=== PATIENT | male | born 1935 | race African-American/Black ===

== ENCOUNTER 2021-04-10 11:36 | Inpatient (IN) ==
[2021-04-10] MEDS ORDERED: MORPHINE 2 MG/1 ML SYRINGE IV STA (12:18)
[2021-04-10] MEDS ORDERED: ONDANSETRON 4 MG/2 ML VIAL IV ONE (12:18)
[2021-04-10 13:30] LABS: Alanine Aminotransferase 19 U/L (16-61); Albumin 3.1 G/DL (3.4-5.0); Alkaline Phosphatase 105 U/L (45-117); Aspartate Amino Transferase 69 U/L (0-37); Blood Urea Nitrogen 61 MG/DL (7-18); Carbon Dioxide 21 MMOL/L (21-32); Estimated Glom Filtration Rate 20 ML/MIN; Glucose 377 MG/DL (74-106); Osmolality,Calculated 299.2 MOS/KG (273-304); Potassium 4.5 MMOL/L (3.5-5.1); Sodium 134 MMOL/L (136-145); Total Protein 9.3 G/DL (6.4-8.2); Uric Acid 11.3 MG/DL (3.5-7.2)
[2021-04-10 13:39] LABS: Bacteria,Urine Occasional /HPF (Few); Bilirubin,Urine Negative (Negative); Blood, Urine Small mg/dL (Negative); Glucose,Urine (UA) 50 mg/dL (Negative); Hyaline Casts,Urine 45 /LPF (0-3); Ketones,Urine Negative (Negative); Mucus,Urine Occasional /LPF (Occasional); Nitrite,Urine Negative (Negative); Protein,Urine Negative; RBC,Urine 3 /HPF (0-4); Squamous Epithelial Cell,Urine Occasional /HPF (0-10); Urine Appearance Slightly Hazy (Clear); Urine Color Amber (Yellow); Urine Specific Gravity 1.018 (1.001-1.035)
[2021-04-10] MEDS ORDERED: SODIUM CHLORIDE 0.9% 1,000 ML IV STA (13:53)
[2021-04-10] MEDS ORDERED: COLCHICINE 0.6 MG CAPSULE PO STA (13:54)
[2021-04-10] MEDS ORDERED: GLUCAGON 1 MG VIAL IM PRN ×2 (14:34)
[2021-04-10] MEDS ORDERED: DEXTROSE 50% 25 GM/50 ML VIAL IV PRN ×2 (14:34)
[2021-04-10] MEDS ORDERED: ONDANSETRON 4 MG/2 ML VIAL IV PRN (14:34)
[2021-04-10 14:38] LABS: Basophils % 0.1 % (0.0-0.8); Eosinophils % 0.1 % (0.00-10.9); Hematocrit 34.2 VOL% (42.0-52.0); Hemoglobin 9.7 GM/DL (14.0-18.0); Immature Granulocytes % 0.6 %; Immature Granulocytes Absolute 0.09 #; Lymphocytes # 0.6 10*3/uL (1.4-4.0); Lymphocytes % 4.2 % (21.2-54.2); Mean Corpuscular HGB Conc 28.4 GM/DL (32-36); Mean Corpuscular Volume 77.9 FL (87-102); Mean Platelet Volume 10.4 FL (9.6-12.0); Monocytes % 5.4 % (1.7-12.7); Neutrophils % 89.6 % (38.7-73.9); Platelet Count 363 T/CUMM (130-400); Red Blood Count 4.39 MC/CUMM (3.8-5.5); Red Cell Distribution Width 17.6 % (9.3-17.3)
[2021-04-10 15:05] LABS: Lymphocytes 4 % (20-55); Total Cells Counted 100
[2021-04-10 15:06] LABS: Polychromasia Slight
[2021-04-10 15:07] LABS: Anisocytosis 1+; Microcytosis 1+
[2021-04-10 15:09] LABS: Segmented Neutrophils 91 % (50-85)
[2021-04-10 16:49] LABS: Total Protein 8.3 G/DL (6.4-8.2)
[2021-04-10 16:58] LABS: High Sensitive Troponin I* 114.9 ng/L (0-78)
[2021-04-10] MEDS: SODIUM CHLORIDE 0.9% 1,000 ML IV SCH (17:21)
[2021-04-10] MEDS: INSULIN LISPRO 100 UNIT/ML SUBCUT SCH ×2 (17:21→21:47)
[2021-04-10] MEDS: HEPARIN 5,000 UNIT/1 ML VIAL SUBCUT SCH (17:21)
[2021-04-10 18:40] LABS: Hepatitis B Core IgM Quant 0.08 Index; Hepatitis B Surface Ag Quant < 0.10 Index; Hepatitis B Surface Ag Result Non-Reactive (NonReactive); Hepatitis C Virus Ab Quant > 11.00 Index; Hepatitis C Virus Ab Result Reactive (NonReactive)
[2021-04-11] MEDS: SODIUM CHLORIDE 0.9% 1,000 ML IV SCH ×3 (05:16→21:20)
[2021-04-11] MEDS: HEPARIN 5,000 UNIT/1 ML VIAL SUBCUT SCH ×2 (05:17→21:20)
[2021-04-11 06:20] LABS: Basophils % 0.1 % (0.0-0.8); Eosinophils % 0.3 % (0.00-10.9); Hematocrit 25.9 VOL% (42.0-52.0); Immature Granulocytes % 0.8 %; Immature Granulocytes Absolute 0.07 #; Lymphocytes # 1.3 10*3/uL (1.4-4.0); Lymphocytes % 13.9 % (21.2-54.2); Mean Corpuscular Volume 77.5 FL (87-102); Mean Platelet Volume 10.1 FL (9.6-12.0); Monocytes % 7.4 % (1.7-12.7); NRBC # 0.04 10*3/uL; Neutrophils % 77.5 % (38.7-73.9); Red Cell Distribution Width 17.5 % (9.3-17.3)
[2021-04-11 06:21] LABS: Hemoglobin 7.5 GM/DL (14.0-18.0); Platelet Count 254 T/CUMM (130-400); Red Blood Count 3.34 MC/CUMM (3.8-5.5); White Blood Count 9.2 T/CUMM (4-12)
[2021-04-11 06:28] LABS: Albumin 2.2 G/DL (3.4-5.0); Bilirubin,Total 0.6 MG/DL (0.20-1.00); Calcium 8.6 MG/DL (8.5-10.1); Osmolality,Calculated 297.4 MOS/KG (273-304); Potassium 3.7 MMOL/L (3.5-5.1); Total Protein 6.8 G/DL (6.4-8.2)
[2021-04-11 06:29] LABS: % Iron Saturation 4.8 % (18-50)
[2021-04-11 06:31] LABS: Hypochromasia 2+; Microcytosis 1+
[2021-04-11 06:32] LABS: Ovalocytes Few; Platelet Estimate Normal; Polychromasia Slight
[2021-04-11 06:41] LABS: Folate 4.47 NG/ML (5.38-24.0); Vitamin B12 1462 PG/ML (211-911)
[2021-04-11 07:42] LABS: Sedimentation Rate-Westergren 113 MM/HR (0-20)
[2021-04-11 08:49] LABS: Total Protein (Chem) 9.3 G/DL (6.4-8.3)
[2021-04-11] MEDS: PANTOPRAZOLE 40 MG TABLET PO SCH (09:16)
[2021-04-11] MEDS: INSULIN LISPRO 100 UNIT/ML SUBCUT SCH ×4 (09:16→21:20)
[2021-04-11 09:43] LABS: Hemoglobin A1 (Alkaline) 97.9 % (96.5-98.5); Hemoglobin A2 (Alkaline) 2.1 % (1.5-3.5)
[2021-04-11 10:18] LABS: Albumin (SPE) 4.2 G/DL (3.2-5.3); Albumin (SPE) Rel % 44.8 %; Alpha 1 (SPE) 0.3 G/DL (0.1-0.4); Alpha 1 (SPE) Rel % 3.6 %; Alpha 2 (SPE) 1.2 G/DL (0.4-1.0); Alpha 2 (SPE) Rel % 12.5 %; Beta (SPE) 1.3 G/DL (0.5-1.1); Gamma (SPE) Rel % 25.1 %
[2021-04-11 10:29] LABS: Gamma (SPE) 2.3 G/DL (0.7-1.7)
[2021-04-11] MEDS: IRON (CARBONYL) 45 MG TABLET PO SCH ×2 (12:22→21:20)
[2021-04-12] MEDS: SODIUM CHLORIDE 0.9% 1,000 ML IV SCH (06:42)
[2021-04-12 06:52] LABS: Basophils % 0.2 % (0.0-0.8); Eosinophils # 0.1 10*3/uL (0.0-0.87); Eosinophils % 0.9 % (0.00-10.9); Hematocrit 23.4 VOL% (42.0-52.0); Hemoglobin 6.7 GM/DL (14.0-18.0); Immature Granulocytes % 0.7 %; Immature Granulocytes Absolute 0.04 #; Lymphocytes # 1.4 10*3/uL (1.4-4.0); Lymphocytes % 24.6 % (21.2-54.2); Mean Corpuscular HGB Conc 28.6 GM/DL (32-36); Mean Corpuscular Volume 79.1 FL (87-102); Mean Platelet Volume 10.1 FL (9.6-12.0); Monocytes % 8.5 % (1.7-12.7); Neutrophils % 65.1 % (38.7-73.9); Platelet Count 213 T/CUMM (130-400); Red Blood Count 2.96 MC/CUMM (3.8-5.5); Red Cell Distribution Width 17.3 % (9.3-17.3); White Blood Count 5.8 T/CUMM (4-12)
[2021-04-12 06:55] LABS: Hypochromasia 2+; Microcytosis 1+; Platelet Estimate Adequate
[2021-04-12 07:05] LABS: Calcium 8.1 MG/DL (8.5-10.1); Osmolality,Calculated 289.5 MOS/KG (273-304); Potassium 3.4 MMOL/L (3.5-5.1)
[2021-04-12] MEDS: INSULIN LISPRO 100 UNIT/ML SUBCUT SCH ×4 (08:02→20:22)
[2021-04-12] MEDS: PANTOPRAZOLE 40 MG TABLET PO SCH (09:19)
[2021-04-12] MEDS: IRON (CARBONYL) 45 MG TABLET PO SCH ×2 (09:19→20:22)
[2021-04-12] MEDS: HEPARIN 5,000 UNIT/1 ML VIAL SUBCUT SCH ×2 (09:21→20:22)
[2021-04-12] MEDS ORDERED: SODIUM CHLORIDE 0.9% 1,000 ML IV PRN (10:00)
[2021-04-12 17:02] LABS: Total Protein 6.5 G/DL (6.4-8.2)
[2021-04-13 05:15] LABS: Basophils % 0.3 % (0.0-0.8); Eosinophils # 0.1 10*3/uL (0.0-0.87); Eosinophils % 1.3 % (0.00-10.9); Hematocrit 27.6 VOL% (42.0-52.0); Immature Granulocytes % 1.3 %; Immature Granulocytes Absolute 0.08 #; Lymphocytes # 1.5 10*3/uL (1.4-4.0); Lymphocytes % 24.3 % (21.2-54.2); Mean Corpuscular Volume 79.8 FL (87-102); Mean Platelet Volume 10.3 FL (9.6-12.0); Monocytes % 8.8 % (1.7-12.7); Platelet Count 214 T/CUMM (130-400); Red Blood Count 3.46 MC/CUMM (3.8-5.5); Red Cell Distribution Width 17.1 % (9.3-17.3); White Blood Count 6.4 T/CUMM (4-12)
[2021-04-13 08:05] LABS: Immunoglobulin A (Chem) 322 MG/DL (70-400); Immunoglobulin G (Chem) 1680 MG/DL (700-1600); Immunoglobulin M (Chem) 111 MG/DL (40-230); Total Protein (Chem) 6.5 G/DL (6.4-8.3)
[2021-04-13 09:01] LABS: Immuno Free Light Chain Kappa 13.03 MG/DL (0.33-1.94)
[2021-04-13 09:02] LABS: Immuno Free Light Chain Lambda 6.73 MG/DL (0.57-2.63); Immuno Free Light Chain Ratio 1.94 MG/DL (0.26-1.65)
[2021-04-13] MEDS: IRON (CARBONYL) 45 MG TABLET PO SCH ×2 (09:16→21:56)
[2021-04-13] MEDS: PANTOPRAZOLE 40 MG TABLET PO SCH (09:16)
[2021-04-13] MEDS: HEPARIN 5,000 UNIT/1 ML VIAL SUBCUT SCH ×2 (09:16→21:57)
[2021-04-13] MEDS: INSULIN LISPRO 100 UNIT/ML SUBCUT SCH ×4 (09:16→21:56)
[2021-04-13 10:09] LABS: Albumin (SPE) 2.9 G/DL (3.2-5.3); Albumin (SPE) Rel % 45.1 %; Alpha 1 (SPE) 0.3 G/DL (0.1-0.4); Alpha 1 (SPE) Rel % 3.9 %; Alpha 2 (SPE) 0.8 G/DL (0.4-1.0); Alpha 2 (SPE) Rel % 12.9 %; Beta (SPE) 0.7 G/DL (0.5-1.1); Beta (SPE) Rel % 11.2 %; Gamma (SPE) 1.7 G/DL (0.7-1.7); Gamma (SPE) Rel % 26.9 %
[2021-04-14 08:28] LABS: Basophils % 0.3 % (0.0-0.8); Eosinophils # 0.1 10*3/uL (0.0-0.87); Eosinophils % 1.3 % (0.00-10.9); Hematocrit 29.4 VOL% (42.0-52.0); Hemoglobin 8.6 GM/DL (14.0-18.0); Immature Granulocytes % 1.2 %; Immature Granulocytes Absolute 0.07 #; Lymphocytes # 1.4 10*3/uL (1.4-4.0); Lymphocytes % 23.2 % (21.2-54.2); Mean Corpuscular HGB Conc 29.3 GM/DL (32-36); Mean Corpuscular Volume 78.4 FL (87-102); Mean Platelet Volume 9.6 FL (9.6-12.0); Platelet Count 228 T/CUMM (130-400); Red Blood Count 3.75 MC/CUMM (3.8-5.5); Red Cell Distribution Width 17.1 % (9.3-17.3)
[2021-04-14 08:57] LABS: Calcium 8.6 MG/DL (8.5-10.1); Osmolality,Calculated 284.4 MOS/KG (273-304); Potassium 3.5 MMOL/L (3.5-5.1)
[2021-04-14] MEDS: INSULIN LISPRO 100 UNIT/ML SUBCUT SCH ×3 (09:08→16:32)
[2021-04-14] MEDS: IRON (CARBONYL) 45 MG TABLET PO SCH (09:53)
[2021-04-14] MEDS: PANTOPRAZOLE 40 MG TABLET PO SCH (09:53)
[2021-04-14] MEDS: HEPARIN 5,000 UNIT/1 ML VIAL SUBCUT SCH (09:53)
[2021-04-14 15:33] VITALS: BP 121/73
[2021-04-14] MEDS: SODIUM CHLORIDE 0.9% 1,000 ML IV SCH (16:33)
== END 2021-04-14 18:40 | disposition home or self-care (01) | DRG 683 ==
LOC: EDUNIT# → EDBD → N.EDINP 11:36 → N.ED 11:36 → N.5E 14:56
PROVIDERS: ADMIT Internal Medicine Geriatric Medicine; ATTEND Internal Medicine Geriatric Medicine